=== PATIENT | female | born 2000 | race Two or more races ===

== ENCOUNTER 2023-06-09 22:04 | Emergency (ER) | payer SELFPAY ==
[~2023-06-09] VITALS: Ht 167.6 cm; Wt 86.2 kg
[2023-06-09] MEDS ORDERED: ALPRAZolam 0.5 MG TAB PO ONE (23:45)
[2023-06-09 23:51] VITALS: BP 137/91; PULSE 112; RESP 19; TEMP 98.3; O2SAT 96
[2023-06-10] MEDS ORDERED: ALPR1TAB2 PO (00:54)
== END 2023-06-10 01:15 | disposition home or self-care (01) ==
LOC: ER 22:04 → EDBD 22:04 → ER 06-10 01:15
DX: F41.9 Anxiety disorder, unspecified (principal)
CPT/HCPCS: 93005

== ENCOUNTER 2023-09-03 05:36 | Emergency (ER) | payer SELFPAY ==
[~2023-09-03] VITALS: Ht 167.6 cm; Wt 93.0 kg
[~2023-09-03 05:36] MED LIST: ALPR1TAB2 PO
[2023-09-03] MEDS ORDERED: levETIRAcetam 1000 mg/100ml 100 ML IV ONE (06:00)
[2023-09-03 07:04] LABS: Basophils # (auto) 0 10 ^3/uL (0-0.2); Basophils % (auto) 0.4 % (0.0-2.0); Eosinophils # (auto) 0 10 ^3/uL (0-0.8); Eosinophils % (auto) 0.7 % (0.0-7.0); Hematocrit 38.6 % (36.0-46.0); Hemoglobin 12.9 g/dL (12.2-16.2); Lymphocytes # (auto) 1.8 10 ^3/uL (0.4-5.4); Lymphocytes % (auto) 30.2 % (10.0-50.0); Mean Corpuscular Hemoglobin 28.9 pg (28.0-32.0); Mean Corpuscular Hgb Conc. 33.5 g/dL (32.0-36.0); Mean Corpuscular Volume 86.2 fL (80.0-100.0); Monocytes # (auto) 0.7 10 ^3/uL (0-1.3); Monocytes % (auto) 11.5 % (0.0-12.0); Neutrophils # (auto) 3.4 10 ^3/uL (1.6-8.6); Neutrophils % (auto) 57.2 % (37.0-80.0); Nucleated Red Blood Cells % 0.1 %; Red Blood Cells 4.47 10^6/uL (4.0-5.20); Red Cell Distribution Width 12.6 % (11.8-14.3); White Blood Cell 5.9 10^3/uL (4.4-10.8)
[2023-09-03 07:11] LABS: Alanine Aminotransferase 20 U/L (7-40); Albumin 4.2 g/dL (3.2-4.8); Alkaline Phosphatase 71 U/L (46-116); Anion Gap 5 (5-15); Aspartate Aminotransferase 12 U/L (13-40); BUN/Creatinine Ratio 12.2 (10.0-20.0); Bilirubin, Total 0.4 mg/dL (0.2-1.0); Blood Urea Nitrogen 10 mg/dL (9-23); Calcium 8.8 mg/dL (8.7-10.4); Carbon Dioxide 26 mmol/L (20-30); Chloride 107 mmol/L (98-107); Glucose 117 mg/dL (74-106); Potassium 3.8 mmol/L (3.5-5.1); Sodium 138 mmol/L (136-145); Total Protein 6.8 g/dL (5.7-8.2)
[2023-09-03 09:21] VITALS: BP 122/85; PULSE 87; RESP 16; TEMP 97.8; O2SAT 100
== END 2023-09-03 10:29 | disposition home or self-care (01) ==
LOC: ER 05:36 → EDBD 05:36 → ER 10:28
DX: G40.909 Epilepsy, unspecified, not intractable, without status epilepticus (principal)
CPT/HCPCS: 36415; 80053; 85025; 96365; 99284; J1953